=== PATIENT | male | born 1975 | race Caucasian/White ===

== ENCOUNTER 2017-08-07 02:17 | Inpatient (IN) ==
[2017-08-07] MEDS ORDERED: ASPIRIN 325 MG TABLET PO STA (02:42)
[2017-08-07 02:49] LABS: Basophils # 0.1 10*3/uL (0.0-0.2); Basophils % 0.7 % (0.0-0.8); Eosinophils # 0.2 10*3/uL (0.0-0.87); Hematocrit 44.9 VOL% (42.0-52.0); Immature Granulocytes % 0.2 %; Immature Granulocytes Absolute 0.02 #; Lymphocytes # 2.7 10*3/uL (1.4-4.0); Lymphocytes % 25.2 % (21.2-54.2); Mean Corpuscular HGB Conc 33.4 GM/DL (32-36); Mean Corpuscular Hemoglobin 29 PG (27-34); Mean Corpuscular Volume 87.4 FL (87-102); Mean Platelet Volume 11.2 FL (9.6-12.0); Monocytes # 0.7 10*3/uL (0.11-0.8); Monocytes % 6.2 % (1.7-12.7); Neutrophils # 6.9 10*3/uL (1.4-7.4); Neutrophils % 65.7 % (38.7-73.9); Platelet Count 233 T/CUMM (130-400); Red Blood Count 5.14 MC/CUMM (3.8-5.5); Red Cell Distribution Width 13.7 % (9.3-17.3); White Blood Count 10.5 T/CUMM (4-12)
[2017-08-07] MEDS ORDERED: ASPIRIN 325 MG TABLET ONE (02:52)
[2017-08-07 03:00] LABS: VBG Base Excess -1.3 MEQ/L (0-4); VBG HCO3 25.3 MEQ/L (24-28); VBG Oxygen Saturation 91.6 %; VBG PCO2 49.4 MMHG (41-51); VBG PH 7.328; VBG PO2 65.8 MMHG (17-40)
[2017-08-07 03:10] LABS: Albumin 3.7 G/DL (3.4-5.0); Bilirubin,Total 0.4 MG/DL (0.2-1.0); Calcium 8.7 MG/DL (8.5-10.1); Osmolality,Calculated 275.7 MOS/KG (273-304); Total Protein 6.8 G/DL (6.4-8.3)
[2017-08-07] MEDS ORDERED: FUROSEMIDE 40 MG/4 ML VIAL IV STA (03:36)
[2017-08-07] MEDS ORDERED: FUROSEMIDE 40 MG/4 ML VIAL ONE (03:47)
[2017-08-07] MEDS ORDERED: LORazepam 2 MG/1 ML VIAL IV STA (03:52)
[2017-08-07] MEDS ORDERED: LORazepam 2 MG/1 ML VIAL ONE (03:54)
[2017-08-07] MEDS ORDERED: MORPHINE 2 MG/1 ML SYRINGE IV PRN (05:14)
[2017-08-07] MEDS ORDERED: ONDANSETRON 4 MG/2 ML VIAL IV PRN (05:14)
[2017-08-07 06:14] LABS: Magnesium 1.9 MG/DL (1.8-2.4); Risk Ratio 3.95; Thyroid Stimulating Hormone 2.62 uIU/ml (0.358-3.74); VLDL CHOLESTEROL 34.6 MG/DL
[2017-08-07] MEDS ORDERED: NITROGLYCERIN SL 0.4 MG TABLET SL PRN (06:31)
[2017-08-07] MEDS ORDERED: INFLUENZA VIRUS VACCINE 0.5 ML SYRINGE IM ONE (06:55)
[2017-08-07] MEDS ORDERED: PNEUMOCOCCAL VACCINE (23 VALENT) 0.5 ML VIAL IM ONE (06:56)
[2017-08-07] MEDS: FUROSEMIDE 20 MG/2 ML VIAL IV SCH ×2 (09:23→17:52)
[2017-08-07] MEDS: ENOXAPARIN 40 MG/0.4 ML SYRINGE SUBCUT SCH (09:23)
[2017-08-07] MEDS: LISINOPRIL 2.5 MG TABLET PO SCH (09:23)
[2017-08-07] MEDS: POTASSIUM CHLORIDE 10 MEQ TABLET PO SCH ×2 (09:23→20:51)
[2017-08-07] MEDS ORDERED: DIAZEPAM 5 MG TABLET PO ONE (10:34)
[2017-08-07] MEDS ORDERED: MAGNESIUM SULF RIDER 2 GM in PREMIX 1 EACH IV PRN (10:34)
[2017-08-07] MEDS ORDERED: POTASSIUM CHLORIDE RIDER 10 MEQ in PREMIX 1 EACH IV PRN (10:34)
[2017-08-07 11:51] LABS: Hepatitis A Ab IgM Quant 0.14 Index; Hepatitis A Ab IgM Result Negative (Negative); Hepatitis B Core IgM Quant 0.11 Index; Hepatitis B Core IgM Result Negative (Negative); Hepatitis B Surface Ag Quant < 0.10 Index; Hepatitis B Surface Ag Result Negative (Negative); Hepatitis C Virus Ab Quant < 0.02 Index; Hepatitis C Virus Ab Result Negative (Negative)
[2017-08-07] MEDS ORDERED: DEXTROSE 50% 25 GM/50 ML VIAL IV PRN (11:59)
[2017-08-07] MEDS ORDERED: GLUCAGON 1 MG VIAL IM PRN (11:59)
[2017-08-07 12:03] LABS: HIV Antigen/Antibody Result Nonreactive (Nonreactive)
[2017-08-07] MEDS: INSULIN LISPRO 100 UNIT/ML SUBCUT SCH ×2 (16:15→20:52)
[2017-08-07] MEDS: BISOPROLOL 5 MG TABLET PO SCH (17:52)
[2017-08-07] MEDS: LORazepam 2 MG/1 ML VIAL IV PRN (20:51)
[2017-08-08] MEDS: ENOXAPARIN 40 MG/0.4 ML SYRINGE SUBCUT SCH (05:50)
[2017-08-08 05:53] LABS: Calcium 9.3 MG/DL (8.5-10.1); Osmolality,Calculated 279.5 MOS/KG (273-304); Potassium 4.3 MMOL/L (3.5-5.1)
[2017-08-08 05:56] LABS: Albumin 3.3 G/DL (3.4-5.0); Bilirubin,Total 0.9 MG/DL (0.2-1.0); Calcium 9.1 MG/DL (8.5-10.1); Osmolality,Calculated 280.5 MOS/KG (273-304); Potassium 4.3 MMOL/L (3.5-5.1); Total Protein 5.9 G/DL (6.4-8.3)
[2017-08-08 06:10] LABS: Basophils # 0.1 10*3/uL (0.0-0.2); Basophils % 0.8 % (0.0-0.8); Eosinophils # 0.2 10*3/uL (0.0-0.87); Eosinophils % 2.2 % (0.00-10.9); Hematocrit 44.3 VOL% (42.0-52.0); Hemoglobin 14.8 GM/DL (14.0-18.0); Immature Granulocytes % 0.3 %; Immature Granulocytes Absolute 0.03 #; Lymphocytes # 2.9 10*3/uL (1.4-4.0); Lymphocytes % 27.6 % (21.2-54.2); Mean Corpuscular HGB Conc 33.4 GM/DL (32-36); Mean Corpuscular Hemoglobin 29 PG (27-34); Mean Corpuscular Volume 85.7 FL (87-102); Mean Platelet Volume 12.1 FL (9.6-12.0); Monocytes # 0.6 10*3/uL (0.11-0.8); Neutrophils # 6.6 10*3/uL (1.4-7.4); Neutrophils % 63.1 % (38.7-73.9); Platelet Count 256 T/CUMM (130-400); Red Blood Count 5.17 MC/CUMM (3.8-5.5); Red Cell Distribution Width 13.7 % (9.3-17.3); White Blood Count 10.4 T/CUMM (4-12)
[2017-08-08] MEDS ORDERED: DIAZEPAM 5 MG TABLET ONE (07:41)
[2017-08-08] MEDS ORDERED: diphenhydrAMINE CAP 25 MG CAPSULE ONE (07:41)
[2017-08-08] MEDS: INSULIN LISPRO 100 UNIT/ML SUBCUT SCH ×4 (08:43→21:46)
[2017-08-08] MEDS ORDERED: diphenhydrAMINE CAP 25 MG CAPSULE PO ONE (09:00)
[2017-08-08] MEDS ORDERED: LIDOCAINE 1% 20 ML VIAL ONE (09:13)
[2017-08-08] MEDS ORDERED: HEPARIN/NACL 0.9% 2 UNITS/ML 2,000 ML IV ONE (09:13)
[2017-08-08] MEDS: BISOPROLOL 5 MG TABLET PO SCH (09:24)
[2017-08-08] MEDS: LISINOPRIL 2.5 MG TABLET PO SCH (09:24)
[2017-08-08] MEDS ORDERED: MIDAZOLAM 2 MG/2 ML VIAL ONE (09:55)
[2017-08-08] MEDS ORDERED: fentaNYL 100 MCG/2 ML VIAL ONE (09:55)
[2017-08-08] MEDS ORDERED: FUROSEMIDE 20 MG/2 ML VIAL IV SCH (10:24)
[2017-08-08] MEDS ORDERED: FUROSEMIDE 40 MG/4 ML VIAL IV ONE (10:34)
[2017-08-08] MEDS: SODIUM CHLORIDE 0.45% 1,000 ML IV SCH ×3 (10:48→14:54)
[2017-08-08] MEDS: FUROSEMIDE 20 MG/2 ML VIAL IV SCH (11:04)
[2017-08-08] MEDS: POTASSIUM CHLORIDE 10 MEQ TABLET PO SCH ×2 (12:19→21:42)
[2017-08-08] MEDS: LORazepam 2 MG/1 ML VIAL IV PRN (17:35)
[2017-08-08] MEDS ORDERED: ATORVASTATIN 20 MG TABLET PO SCH (21:00)
[2017-08-08] MEDS ORDERED: CARVEDILOL 3.125 MG TABLET PO SCH (21:00)
[2017-08-08] MEDS ORDERED: SACUBITRIL/VALSARTAN 49-51 MG TABLET PO SCH (21:00)
[2017-08-09 00:38] VITALS: BP 116/69
[2017-08-09] MEDS: LORazepam 2 MG/1 ML VIAL IV PRN (01:34)
[2017-08-09] MEDS ORDERED: ASPIRIN EC 81 MG TABLET PO SCH (09:00)
[2017-08-09] MEDS ORDERED: FUROSEMIDE 40 MG/4 ML VIAL IV SCH (09:00)
== END 2017-08-09 02:31 | disposition left against medical advice (07) | DRG 287 ==
LOC: N.ED 02:17 → N.EDINP 05:11 → SUATTDRO 05:11 → N.TELEN 05:59
PROVIDERS: ADMIT Internal Medicine; ATTEND Internal Medicine
PROC: CLCCHCL (ICD-10-PCS; 2017-08-08 10:15)

== ENCOUNTER 2019-12-16 02:47 | Observation (INO) ==
[2019-12-16 03:20] LABS: Basophils # 0.1 10*3/uL (0.0-0.2); Basophils % 0.5 % (0.0-0.8); Eosinophils # 0.1 10*3/uL (0.0-0.87); Eosinophils % 1.4 % (0.00-10.9); Hematocrit 38.2 VOL% (42.0-52.0); Hemoglobin 12.6 GM/DL (14.0-18.0); Immature Granulocytes % 0.2 %; Immature Granulocytes Absolute 0.02 #; Lymphocytes # 2.4 10*3/uL (1.4-4.0); Lymphocytes % 23.7 % (21.2-54.2); Mean Corpuscular Volume 87.6 FL (87-102); Mean Platelet Volume 10.9 FL (9.6-12.0); Monocytes % 7.8 % (1.7-12.7); Neutrophils % 66.4 % (38.7-73.9); Platelet Count 246 T/CUMM (130-400); Red Blood Count 4.36 MC/CUMM (3.8-5.5); Red Cell Distribution Width 13.6 % (9.3-17.3)
[2019-12-16 03:31] LABS: INR 1.1; PT Patient Result 11.9 SECS (9.8-11.9)
[2019-12-16 03:57] LABS: Albumin 3.1 G/DL (3.4-5.0); Calcium 8.7 MG/DL (8.5-10.1); Osmolality,Calculated 283.4 MOS/KG (273-304); Total Protein 6.2 G/DL (6.4-8.3)
[2019-12-16] MEDS ORDERED: FUROSEMIDE 100 MG/10 ML VIAL IV STA (04:39)
[2019-12-16] MEDS ORDERED: guaiFENesin/DM ER 600-30 MG TABLET PO PRN (05:22)
[2019-12-16] MEDS ORDERED: NICOTINE 21 MG/24 HR PATCH TRANSDERM PRN (05:22)
[2019-12-16] MEDS ORDERED: GLUCAGON 1 MG VIAL IM PRN (05:22)
[2019-12-16] MEDS ORDERED: ALUMINUM/MAGNES/SIMETH MAX STR 30 ML UDCUP PO PRN (05:22)
[2019-12-16] MEDS ORDERED: diphenhydrAMINE CAP 25 MG CAPSULE PO PRN (05:22)
[2019-12-16] MEDS ORDERED: DEXTROSE 50% 25 GM/50 ML VIAL IV PRN (05:22)
[2019-12-16] MEDS ORDERED: hydrALAZINE 20 MG/1 ML VIAL IV PRN (05:22)
[2019-12-16] MEDS ORDERED: ONDANSETRON 4 MG/2 ML VIAL IV PRN (05:22)
[2019-12-16] MEDS ORDERED: MORPHINE 4 MG/1 ML VIAL IV PRN (05:22)
[2019-12-16] MEDS ORDERED: ACETAMINOPHEN 325 MG TABLET PO PRN (05:22)
[2019-12-16 05:36] LABS: Apearance,Urine CLEAR (Clear); Bacteria,Urine Occasional /HPF (Few); Bilirubin,Urine Negative (Negative); Blood, Urine Negative (Negative); Calcium Oxalate Crystals,Urine Occasional /HPF (Few); Glucose,Urine (UA) Negative (Negative); Ketones,Urine Negative (Negative); Mucus,Urine Occasional /LPF (Occasional); Nitrite,Urine Negative (Negative); Protein,Urine 30 MG/DL; RBC,Urine 14 /HPF (0-4); Sperm,Urine Occasional /HPF (Negative); Squamous Epithelial Cell,Urine Occasional /HPF (0-10); Urine Color Yellow (Yellow); Urine Specific Gravity 1.047 (1.001-1.035); Urine Urobilinogen < 2.0 EU/DL (0.2-1.0); WBC,Urine 3 /HPF (0-6)
[2019-12-16 07:19] LABS: Risk Ratio 3.49; Thyroid Stimulating Hormone 1.64 uIU/ml (0.358-3.74)
[2019-12-16 07:50] LABS: Barbiturates Screen,Urine Negative (Negative); Benzodiazepines Screen,Urine Negative (Negative); Cannabinoid Screen,Urine Positive (Negative); Opiate Screen,Urine Negative (Negative); Phencyclidine Screen,Urine Negative (Negative)
[2019-12-16] MEDS: INSULIN REGULAR 100 UNIT/ML SUBCUT SCH ×4 (08:42→21:06)
[2019-12-16] MEDS: carvediloL 12.5 MG TABLET PO SCH ×2 (08:49→21:05)
[2019-12-16] MEDS: FUROSEMIDE 20 MG/2 ML VIAL IV SCH (08:49)
[2019-12-16] MEDS: ENOXAPARIN 40 MG/0.4 ML SYRINGE SUBCUT SCH (08:50)
[2019-12-16] MEDS: ASPIRIN CHEW 81 MG TABLET PO SCH (21:04)
[2019-12-17 06:52] LABS: Basophils # 0.1 10*3/uL (0.0-0.2); Basophils % 0.7 % (0.0-0.8); Eosinophils # 0.2 10*3/uL (0.0-0.87); Eosinophils % 1.7 % (0.00-10.9); Hematocrit 43.8 VOL% (42.0-52.0); Hemoglobin 14.5 GM/DL (14.0-18.0); Immature Granulocytes % 0.3 %; Immature Granulocytes Absolute 0.03 #; Lymphocytes # 2.1 10*3/uL (1.4-4.0); Lymphocytes % 21.5 % (21.2-54.2); Mean Corpuscular HGB Conc 33.1 GM/DL (32-36); Mean Corpuscular Volume 87.3 FL (87-102); Monocytes % 4.5 % (1.7-12.7); Neutrophils % 71.3 % (38.7-73.9); Platelet Count 264 T/CUMM (130-400); Red Blood Count 5.02 MC/CUMM (3.8-5.5); Red Cell Distribution Width 13.9 % (9.3-17.3); White Blood Count 9.6 T/CUMM (4-12)
[2019-12-17 07:19] LABS: Calcium 8.8 MG/DL (8.5-10.1); Osmolality,Calculated 278.7 MOS/KG (273-304)
[2019-12-17] MEDS: INSULIN REGULAR 100 UNIT/ML SUBCUT SCH (07:31)
[2019-12-17 07:40] VITALS: BP 113/90
[2019-12-17] MEDS ORDERED: lisinopriL 2.5 MG TABLET PO SCH (09:26)
[2019-12-17] MEDS: carvediloL 12.5 MG TABLET PO SCH (09:43)
[2019-12-17] MEDS: FUROSEMIDE 20 MG/2 ML VIAL IV SCH (09:43)
[2019-12-17] MEDS: ASPIRIN CHEW 81 MG TABLET PO SCH (09:43)
[2019-12-17] MEDS: ENOXAPARIN 40 MG/0.4 ML SYRINGE SUBCUT SCH (09:43)
== END 2019-12-17 11:15 | disposition home or self-care (01) ==
LOC: EDBD → EDUNIT# → N.EDINP 02:47 → N.ED 02:47 → N.TELES 05:53
PROVIDERS: ADMIT Internal Medicine; ATTEND Internal Medicine

== ENCOUNTER 2020-04-24 11:06 | Observation (INO) ==
[2020-04-24] MEDS ORDERED: FUROSEMIDE 100 MG/10 ML VIAL IV STA ×2 (12:33→13:28)
[2020-04-24 12:57] LABS: Basophils # 0.1 10*3/uL (0.0-0.2); Eosinophils # 0.2 10*3/uL (0.0-0.87); Eosinophils % 1.7 % (0.00-10.9); Hematocrit 41.5 VOL% (42.0-52.0); Hemoglobin 13.8 GM/DL (14.0-18.0); Immature Granulocytes % 0.2 %; Immature Granulocytes Absolute 0.02 #; Lymphocytes # 2.7 10*3/uL (1.4-4.0); Lymphocytes % 30.9 % (21.2-54.2); Mean Corpuscular HGB Conc 33.3 GM/DL (32-36); Mean Corpuscular Volume 87.9 FL (87-102); Mean Platelet Volume 10.9 FL (9.6-12.0); Monocytes % 9.4 % (1.7-12.7); Neutrophils % 56.8 % (38.7-73.9); Platelet Count 193 T/CUMM (130-400); Red Blood Count 4.72 MC/CUMM (3.8-5.5); Red Cell Distribution Width 16.3 % (9.3-17.3); White Blood Count 8.7 T/CUMM (4-12)
[2020-04-24 13:20] LABS: Albumin 3.9 G/DL (3.4-5.0); Bilirubin,Total 1.6 MG/DL (0.2-1.0); Calcium 9.6 MG/DL (8.5-10.1); Osmolality,Calculated 271.1 MOS/KG (273-304); Total Protein 7.5 G/DL (6.4-8.3)
[2020-04-24 14:37] LABS: Apearance,Urine CLEAR (Clear); Bilirubin,Urine Negative (Negative); Blood, Urine Negative (Negative); Glucose,Urine (UA) Negative (Negative); Ketones,Urine Negative (Negative); Mucus,Urine Occasional /LPF (Occasional); Nitrite,Urine Negative (Negative); Protein,Urine 30 MG/DL; RBC,Urine 1 /HPF (0-4); Urine Color Yellow (Yellow); Urine Specific Gravity 1.019 (1.001-1.035); WBC,Urine <1 /HPF (0-6)
[2020-04-24 14:42] LABS: Barbiturates Screen,Urine Negative (Negative); Benzodiazepines Screen,Urine Negative (Negative); Cannabinoid Screen,Urine Positive (Negative); Opiate Screen,Urine Negative (Negative); Phencyclidine Screen,Urine Negative (Negative)
[2020-04-24] MEDS ORDERED: ACETAMINOPHEN 325 MG TABLET PO PRN (15:55)
[2020-04-24] MEDS ORDERED: ONDANSETRON 4 MG/2 ML VIAL IV PRN (15:55)
[2020-04-24] MEDS ORDERED: DOCUSATE SODIUM 100 MG CAPSULE PO PRN (15:55)
[2020-04-24] MEDS ORDERED: hydrALAZINE 20 MG/1 ML VIAL IV PRN (15:55)
[2020-04-24] MEDS ORDERED: GLUCAGON 1 MG VIAL IM PRN (15:55)
[2020-04-24] MEDS ORDERED: guaiFENesin/DM ER 600-30 MG TABLET PO PRN (15:55)
[2020-04-24] MEDS ORDERED: DEXTROSE 50% 25 GM/50 ML VIAL IV PRN (15:55)
[2020-04-24 17:42] LABS: Risk Ratio 6.48; Thyroid Stimulating Hormone 2.01 uIU/ml (0.358-3.74); VLDL CHOLESTEROL 21.4 MG/DL
[2020-04-24 18:07] LABS: Apearance,Urine CLEAR (Clear); Bilirubin,Urine Negative (Negative); Blood, Urine Negative (Negative); Glucose,Urine (UA) Negative (Negative); Ketones,Urine Negative (Negative); Mucus,Urine Occasional /LPF (Occasional); Nitrite,Urine Negative (Negative); Protein,Urine Negative; RBC,Urine <1 /HPF (0-4); Urine Color Straw (Yellow); Urine Specific Gravity 1.005 (1.001-1.035); Urine Urobilinogen < 2.0 EU/DL (0.2-1.0)
[2020-04-24] MEDS: FUROSEMIDE 40 MG/4 ML VIAL IV SCH (18:33)
[2020-04-24] MEDS: carvediloL 12.5 MG TABLET PO SCH (18:38)
[2020-04-24] MEDS: ENOXAPARIN 40 MG/0.4 ML SYRINGE SUBCUT SCH (18:44)
[2020-04-25 05:57] LABS: Basophils # 0.1 10*3/uL (0.0-0.2); Basophils % 0.8 % (0.0-0.8); Eosinophils # 0.2 10*3/uL (0.0-0.87); Hematocrit 40.8 VOL% (42.0-52.0); Hemoglobin 13.1 GM/DL (14.0-18.0); Immature Granulocytes % 0.3 %; Immature Granulocytes Absolute 0.02 #; Lymphocytes # 2.4 10*3/uL (1.4-4.0); Lymphocytes % 31.4 % (21.2-54.2); Mean Corpuscular HGB Conc 32.1 GM/DL (32-36); Mean Corpuscular Volume 89.5 FL (87-102); Mean Platelet Volume 11.3 FL (9.6-12.0); Monocytes % 9.3 % (1.7-12.7); Neutrophils % 56.2 % (38.7-73.9); Platelet Count 194 T/CUMM (130-400); Red Blood Count 4.56 MC/CUMM (3.8-5.5); Red Cell Distribution Width 16.4 % (9.3-17.3); White Blood Count 7.6 T/CUMM (4-12)
[2020-04-25] MEDS: ASPIRIN CHEW 81 MG TABLET PO SCH (09:28)
[2020-04-25] MEDS: FUROSEMIDE 40 MG/4 ML VIAL IV SCH ×2 (09:28→16:23)
[2020-04-25] MEDS: lisinopriL 5 MG TABLET PO SCH (09:28)
[2020-04-25] MEDS: carvediloL 12.5 MG TABLET PO SCH ×2 (09:28→23:12)
[2020-04-25] MEDS: PANTOPRAZOLE 40 MG TABLET PO SCH (09:28)
[2020-04-25] MEDS ORDERED: NICOTINE 21 MG/24 HR PATCH TRANSDERM PRN (13:16)
[2020-04-25] MEDS: ENOXAPARIN 40 MG/0.4 ML SYRINGE SUBCUT SCH (16:26)
[2020-04-26 06:21] LABS: Basophils # 0.1 10*3/uL (0.0-0.2); Basophils % 0.9 % (0.0-0.8); Eosinophils # 0.2 10*3/uL (0.0-0.87); Eosinophils % 2.9 % (0.00-10.9); Hematocrit 41.5 VOL% (42.0-52.0); Hemoglobin 13.6 GM/DL (14.0-18.0); Immature Granulocytes % 0.3 %; Immature Granulocytes Absolute 0.02 #; Lymphocytes % 30.8 % (21.2-54.2); Mean Corpuscular HGB Conc 32.8 GM/DL (32-36); Mean Corpuscular Volume 87.6 FL (87-102); Mean Platelet Volume 10.9 FL (9.6-12.0); Monocytes % 10.1 % (1.7-12.7); Platelet Count 178 T/CUMM (130-400); Red Blood Count 4.74 MC/CUMM (3.8-5.5); Red Cell Distribution Width 16.4 % (9.3-17.3); White Blood Count 6.6 T/CUMM (4-12)
[2020-04-26 06:46] LABS: Calcium 9.1 MG/DL (8.5-10.1); Osmolality,Calculated 273.8 MOS/KG (273-304)
[2020-04-26] MEDS: lisinopriL 5 MG TABLET PO SCH (08:23)
[2020-04-26] MEDS: POTASSIUM CHLORIDE 20 MEQ TABLET PO SCH ×2 (08:23→20:45)
[2020-04-26] MEDS: PANTOPRAZOLE 40 MG TABLET PO SCH (08:24)
[2020-04-26] MEDS: ASPIRIN CHEW 81 MG TABLET PO SCH (08:24)
[2020-04-26] MEDS: FUROSEMIDE 40 MG/4 ML VIAL IV SCH ×2 (08:24→16:04)
[2020-04-26] MEDS: carvediloL 12.5 MG TABLET PO SCH (08:24)
[2020-04-26] MEDS ORDERED: lisinopriL 2.5 MG TABLET PO SCH (15:00)
[2020-04-26] MEDS: ENOXAPARIN 40 MG/0.4 ML SYRINGE SUBCUT SCH (16:03)
[2020-04-26] MEDS: carvediloL 6.25 MG TABLET PO SCH (20:45)
[2020-04-27 06:50] LABS: Basophils # 0.1 10*3/uL (0.0-0.2); Basophils % 0.9 % (0.0-0.8); Eosinophils # 0.2 10*3/uL (0.0-0.87); Eosinophils % 3.1 % (0.00-10.9); Hematocrit 42.3 VOL% (42.0-52.0); Hemoglobin 13.9 GM/DL (14.0-18.0); Immature Granulocytes % 0.3 %; Immature Granulocytes Absolute 0.02 #; Lymphocytes # 2.4 10*3/uL (1.4-4.0); Mean Corpuscular HGB Conc 32.9 GM/DL (32-36); Mean Corpuscular Volume 86.3 FL (87-102); Mean Platelet Volume 11.2 FL (9.6-12.0); Neutrophils % 54.7 % (38.7-73.9); Platelet Count 190 T/CUMM (130-400); Red Cell Distribution Width 16.5 % (9.3-17.3); White Blood Count 7.7 T/CUMM (4-12)
[2020-04-27 07:09] LABS: Osmolality,Calculated 273.8 MOS/KG (273-304)
[2020-04-27] MEDS: POTASSIUM CHLORIDE 20 MEQ TABLET PO SCH (08:50)
[2020-04-27] MEDS: carvediloL 6.25 MG TABLET PO SCH (08:51)
[2020-04-27] MEDS: PANTOPRAZOLE 40 MG TABLET PO SCH (08:51)
[2020-04-27] MEDS: ASPIRIN CHEW 81 MG TABLET PO SCH (08:51)
[2020-04-27] MEDS: FUROSEMIDE 40 MG/4 ML VIAL IV SCH (08:51)
[2020-04-27 09:18] VITALS: BP 98/72
== END 2020-04-27 10:26 | disposition home or self-care (01) ==
LOC: N.ED 11:06 → INTOOBSV 15:55 → N.EDINP 15:55 → N.TELEN 18:16
PROVIDERS: ADMIT Internal Medicine; ATTEND Internal Medicine

== ENCOUNTER 2020-07-20 17:31 | Inpatient (IN) ==
[2020-07-20 18:22] LABS: Basophils # 0.1 10*3/uL (0.0-0.2); Basophils % 0.5 % (0.0-0.8); Eosinophils # 0.1 10*3/uL (0.0-0.87); Eosinophils % 0.6 % (0.00-10.9); Hematocrit 44.7 VOL% (42.0-52.0); Immature Granulocytes % 0.5 %; Immature Granulocytes Absolute 0.06 #; Lymphocytes # 1.7 10*3/uL (1.4-4.0); Lymphocytes % 13.4 % (21.2-54.2); Mean Corpuscular HGB Conc 33.6 GM/DL (32-36); Mean Platelet Volume 12.2 FL (9.6-12.0); Monocytes % 7.2 % (1.7-12.7); Neutrophils % 77.8 % (38.7-73.9); Platelet Count 182 T/CUMM (130-400); Red Blood Count 5.14 MC/CUMM (3.8-5.5); Red Cell Distribution Width 15.1 % (9.3-17.3); White Blood Count 12.8 T/CUMM (4-12)
[2020-07-20 18:48] LABS: Ferritin 238.4 ng/ml (26-388)
[2020-07-20] MEDS ORDERED: ALBUTEROL/IPRATROPIUM 3 ML NEB RESP TX STA (18:53)
[2020-07-20] MEDS ORDERED: methylPREDNISolone SOD SUC 125 MG/2 ML VIAL IV STA (18:53)
[2020-07-20 18:57] LABS: Albumin 3.6 G/DL (3.4-5.0); Bilirubin,Total 3.7 MG/DL (0.2-1.0); Osmolality,Calculated 263.8 MOS/KG (273-304)
[2020-07-20 19:03] LABS: Bacteria,Urine Occasional /HPF (Few); Bilirubin,Urine Negative (Negative); Blood, Urine Negative (Negative); Glucose,Urine (UA) Negative (Negative); Hyaline Casts,Urine 30 /LPF (0-3); Ketones,Urine Negative (Negative); Mucus,Urine Occasional /LPF (Occasional); Nitrite,Urine Negative (Negative); Protein,Urine 100 MG/DL; RBC,Urine 1 /HPF (0-4); Urine Appearance CLEAR (Clear); Urine Color Amber (Yellow); Urine Specific Gravity 1.018 (1.001-1.035); WBC,Urine 1 /HPF (0-6)
[2020-07-20] MEDS ORDERED: SODIUM CHLORIDE 0.9% 1,000 ML IV STA (19:07)
[2020-07-20] MEDS ORDERED: FUROSEMIDE 40 MG/4 ML VIAL IV STA (19:11)
[2020-07-20 19:13] LABS: Barbiturates Screen,Urine Negative (Negative); Benzodiazepines Screen,Urine Negative (Negative); Cannabinoid Screen,Urine Positive (Negative); Opiate Screen,Urine Negative (Negative); Phencyclidine Screen,Urine Negative (Negative)
[2020-07-20] MEDS ORDERED: PIPERACILLIN/TAZOBACTAM 3,375 MG in SODIUM CHLORIDE 0.9% 100 ML IV STA (19:14)
[2020-07-20] MEDS ORDERED: SODIUM CHLORIDE 0.9% 500 ML IV STA (19:26)
[2020-07-20] MEDS ORDERED: GLUCAGON 1 MG VIAL IM PRN (20:47)
[2020-07-20] MEDS ORDERED: hydrALAZINE 20 MG/1 ML VIAL IV PRN (20:47)
[2020-07-20] MEDS ORDERED: DEXTROSE 50% 25 GM/50 ML VIAL IV PRN (20:47)
[2020-07-20] MEDS ORDERED: MORPHINE 4 MG/1 ML VIAL IV PRN (20:47)
[2020-07-20] MEDS ORDERED: NICOTINE 21 MG/24 HR PATCH TRANSDERM PRN (20:47)
[2020-07-20] MEDS ORDERED: ONDANSETRON 4 MG/2 ML VIAL IV PRN (20:47)
[2020-07-20] MEDS ORDERED: ALBUTEROL/IPRATROPIUM 3 ML NEB RESP TX PRN (20:55)
[2020-07-20] MEDS: ENOXAPARIN 40 MG/0.4 ML SYRINGE SUBCUT SCH (21:32)
[2020-07-20] MEDS ORDERED: LORazepam 2 MG/1 ML VIAL IV PRN (23:04)
[2020-07-21] MEDS: lisinopriL 2.5 MG TABLET PO SCH ×2 (00:20→22:32)
[2020-07-21] MEDS: traZODone 50 MG TABLET PO PRN ×2 (00:20→22:29)
[2020-07-21] MEDS: carvediloL 12.5 MG TABLET PO SCH ×3 (00:20→16:12)
[2020-07-21] MEDS: INSULIN REGULAR 100 UNIT/ML SUBCUT SCH ×5 (01:34→22:32)
[2020-07-21 01:35] LABS: Hepatitis B Core IgM Quant 0.07 Index; Hepatitis B Surface Ag Quant < 0.10 Index; Hepatitis B Surface Ag Result Negative (Negative); Hepatitis C Virus Ab Quant < 0.02 Index; Hepatitis C Virus Ab Result Negative (Negative)
[2020-07-21] MEDS: PIPERACILLIN/TAZOBACTAM 3,375 MG in SODIUM CHLORIDE 0.9% 100 ML IV SCH ×3 (04:55→22:30)
[2020-07-21 05:53] LABS: Basophils % 0.1 % (0.0-0.8); Hematocrit 38.4 VOL% (42.0-52.0); Immature Granulocytes % 0.5 %; Immature Granulocytes Absolute 0.04 #; Lymphocytes # 0.8 10*3/uL (1.4-4.0); Lymphocytes % 9.9 % (21.2-54.2); Mean Corpuscular HGB Conc 33.9 GM/DL (32-36); Mean Corpuscular Volume 85.9 FL (87-102); Mean Platelet Volume 12.5 FL (9.6-12.0); Monocytes % 4.2 % (1.7-12.7); Neutrophils % 85.3 % (38.7-73.9); Platelet Count 131 T/CUMM (130-400); Red Blood Count 4.47 MC/CUMM (3.8-5.5); Red Cell Distribution Width 14.7 % (9.3-17.3); White Blood Count 8.4 T/CUMM (4-12)
[2020-07-21 06:12] LABS: Albumin 2.9 G/DL (3.4-5.0); Calcium 8.5 MG/DL (8.5-10.1); Osmolality,Calculated 267.7 MOS/KG (273-304); Risk Ratio 5.95; Total Protein 6.6 G/DL (6.4-8.3); VLDL CHOLESTEROL 10.6 MG/DL
[2020-07-21] MEDS: methylPREDNISolone SOD SUC 40 MG/1 ML VIAL IV SCH ×2 (08:41→22:31)
[2020-07-21] MEDS: ASPIRIN CHEW 81 MG TABLET PO SCH (08:42)
[2020-07-21] MEDS: FUROSEMIDE 40 MG/4 ML VIAL IV SCH ×2 (08:42→16:12)
[2020-07-21] MEDS: PANTOPRAZOLE 40 MG TABLET PO SCH (08:42)
[2020-07-21] MEDS: ENOXAPARIN 40 MG/0.4 ML SYRINGE SUBCUT SCH (22:22)
[2020-07-22] MEDS: PIPERACILLIN/TAZOBACTAM 3,375 MG in SODIUM CHLORIDE 0.9% 100 ML IV SCH (06:09)
[2020-07-22] MEDS: methylPREDNISolone SOD SUC 40 MG/1 ML VIAL IV SCH ×2 (08:19→21:09)
[2020-07-22] MEDS: INSULIN REGULAR 100 UNIT/ML SUBCUT SCH ×4 (08:20→21:10)
[2020-07-22] MEDS: ASPIRIN CHEW 81 MG TABLET PO SCH (08:21)
[2020-07-22] MEDS: PANTOPRAZOLE 40 MG TABLET PO SCH (08:21)
[2020-07-22] MEDS: FUROSEMIDE 40 MG/4 ML VIAL IV SCH ×2 (08:21→16:21)
[2020-07-22] MEDS: carvediloL 12.5 MG TABLET PO SCH ×2 (08:21→16:21)
[2020-07-22] MEDS: CEFUROXIME 500 MG TABLET PO SCH (21:09)
[2020-07-22] MEDS: ENOXAPARIN 40 MG/0.4 ML SYRINGE SUBCUT SCH (21:09)
[2020-07-22] MEDS: lisinopriL 2.5 MG TABLET PO SCH (21:10)
[2020-07-23 06:10] LABS: Basophils % 0.1 % (0.0-0.8); Eosinophils % 0.1 % (0.00-10.9); Hematocrit 41.8 VOL% (42.0-52.0); Hemoglobin 13.6 GM/DL (14.0-18.0); Immature Granulocytes % 1.2 %; Immature Granulocytes Absolute 0.17 #; Lymphocytes # 0.8 10*3/uL (1.4-4.0); Lymphocytes % 5.6 % (21.2-54.2); Mean Corpuscular HGB Conc 32.5 GM/DL (32-36); Mean Corpuscular Volume 87.8 FL (87-102); Monocytes % 5.3 % (1.7-12.7); Neutrophils % 87.7 % (38.7-73.9); Platelet Count 228 T/CUMM (130-400); Red Blood Count 4.76 MC/CUMM (3.8-5.5); Red Cell Distribution Width 15.2 % (9.3-17.3); White Blood Count 14.8 T/CUMM (4-12)
[2020-07-23 06:26] LABS: Calcium 8.9 MG/DL (8.5-10.1); Osmolality,Calculated 273.2 MOS/KG (273-304)
[2020-07-23] MEDS: INSULIN REGULAR 100 UNIT/ML SUBCUT SCH (08:18)
[2020-07-23] MEDS: carvediloL 12.5 MG TABLET PO SCH (08:20)
[2020-07-23] MEDS: CEFUROXIME 500 MG TABLET PO SCH (08:20)
[2020-07-23] MEDS: PANTOPRAZOLE 40 MG TABLET PO SCH (08:20)
[2020-07-23] MEDS: ASPIRIN CHEW 81 MG TABLET PO SCH (08:20)
[2020-07-23] MEDS: FUROSEMIDE 40 MG/4 ML VIAL IV SCH (08:20)
[2020-07-23 08:59] VITALS: BP 118/85
[2020-07-23] MEDS ORDERED: AZITHROMYCIN 250 MG TABLET PO SCH (09:00)
== END 2020-07-23 10:51 | disposition home or self-care (01) | DRG 292 ==
LOC: N.ED 17:31 → N.EDINP 20:46 → N.TELES 22:55
PROVIDERS: ADMIT Hospitalist; ATTEND Hospitalist

== ENCOUNTER 2020-09-03 09:11 | Observation (INO) ==
[2020-09-03] MEDS ORDERED: FUROSEMIDE 40 MG/4 ML VIAL IV STA (09:51)
[2020-09-03 10:01] LABS: Basophils # 0.1 10*3/uL (0.0-0.2); Basophils % 0.9 % (0.0-0.8); Eosinophils # 0.2 10*3/uL (0.0-0.87); Eosinophils % 1.8 % (0.00-10.9); Hematocrit 42.4 VOL% (42.0-52.0); Hemoglobin 13.9 GM/DL (14.0-18.0); Immature Granulocytes % 0.4 %; Immature Granulocytes Absolute 0.03 #; Lymphocytes # 1.7 10*3/uL (1.4-4.0); Lymphocytes % 20.4 % (21.2-54.2); Mean Corpuscular HGB Conc 32.8 GM/DL (32-36); Mean Corpuscular Volume 89.1 FL (87-102); Mean Platelet Volume 10.7 FL (9.6-12.0); Monocytes % 6.6 % (1.7-12.7); Neutrophils % 69.9 % (38.7-73.9); Platelet Count 216 T/CUMM (130-400); Red Blood Count 4.76 MC/CUMM (3.8-5.5); Red Cell Distribution Width 15.8 % (9.3-17.3); White Blood Count 8.5 T/CUMM (4-12)
[2020-09-03 10:20] LABS: Albumin 3.6 G/DL (3.4-5.0); Bilirubin,Total 1.6 MG/DL (0.2-1.0); Potassium 4.2 MMOL/L (3.5-5.1); Total Protein 6.7 G/DL (6.4-8.3)
[2020-09-03] MEDS ORDERED: ACETAMINOPHEN 325 MG TABLET PO PRN (11:15)
[2020-09-03] MEDS ORDERED: DEXTROSE 50% 25 GM/50 ML VIAL IV PRN (11:15)
[2020-09-03] MEDS ORDERED: ONDANSETRON 4 MG/2 ML VIAL IV PRN (11:15)
[2020-09-03] MEDS ORDERED: GLUCAGON 1 MG VIAL IM PRN (11:15)
[2020-09-03 13:05] LABS: Barbiturates Screen,Urine Negative (Negative); Benzodiazepines Screen,Urine Negative (Negative); Cannabinoid Screen,Urine Negative (Negative); Opiate Screen,Urine Negative (Negative); Phencyclidine Screen,Urine Negative (Negative)
[2020-09-03] MEDS: FUROSEMIDE 40 MG/4 ML VIAL IV SCH ×2 (16:30→16:45)
[2020-09-03] MEDS: carvediloL 6.25 MG TABLET PO SCH (21:09)
[2020-09-04 06:33] LABS: Basophils # 0.1 10*3/uL (0.0-0.2); Basophils % 1.2 % (0.0-0.8); Eosinophils # 0.2 10*3/uL (0.0-0.87); Eosinophils % 2.6 % (0.00-10.9); Immature Granulocytes % 0.3 %; Immature Granulocytes Absolute 0.02 #; Lymphocytes # 1.7 10*3/uL (1.4-4.0); Lymphocytes % 25.2 % (21.2-54.2); Mean Corpuscular HGB Conc 33.3 GM/DL (32-36); Mean Corpuscular Volume 87.7 FL (87-102); Mean Platelet Volume 11.3 FL (9.6-12.0); Monocytes % 7.7 % (1.7-12.7); Platelet Count 197 T/CUMM (130-400); Red Blood Count 4.79 MC/CUMM (3.8-5.5); Red Cell Distribution Width 15.6 % (9.3-17.3); White Blood Count 6.9 T/CUMM (4-12)
[2020-09-04 07:00] LABS: Calcium 8.5 MG/DL (8.5-10.1); Osmolality,Calculated 273.8 MOS/KG (273-304); Potassium 3.7 MMOL/L (3.5-5.1); Thyroid Stimulating Hormone 1.45 uIU/ml (0.358-3.74)
[2020-09-04] MEDS: FUROSEMIDE 40 MG/4 ML VIAL IV SCH ×2 (10:14→15:44)
[2020-09-04] MEDS: PANTOPRAZOLE 40 MG TABLET PO SCH (10:14)
[2020-09-04] MEDS: carvediloL 6.25 MG TABLET PO SCH ×2 (10:14→20:38)
[2020-09-05 05:11] LABS: Basophils # 0.1 10*3/uL (0.0-0.2); Basophils % 0.9 % (0.0-0.8); Eosinophils # 0.2 10*3/uL (0.0-0.87); Eosinophils % 2.8 % (0.00-10.9); Hematocrit 43.2 VOL% (42.0-52.0); Hemoglobin 14.4 GM/DL (14.0-18.0); Immature Granulocytes % 0.2 %; Immature Granulocytes Absolute 0.02 #; Lymphocytes # 1.6 10*3/uL (1.4-4.0); Lymphocytes % 19.5 % (21.2-54.2); Mean Corpuscular HGB Conc 33.3 GM/DL (32-36); Mean Corpuscular Volume 86.7 FL (87-102); Mean Platelet Volume 10.8 FL (9.6-12.0); Monocytes % 6.6 % (1.7-12.7); Platelet Count 228 T/CUMM (130-400); Red Blood Count 4.98 MC/CUMM (3.8-5.5); Red Cell Distribution Width 15.5 % (9.3-17.3); White Blood Count 8.2 T/CUMM (4-12)
[2020-09-05 05:29] LABS: Calcium 8.9 MG/DL (8.5-10.1); Osmolality,Calculated 274.1 MOS/KG (273-304); Potassium 3.8 MMOL/L (3.5-5.1)
[2020-09-05 08:18] VITALS: BP 95/68
[2020-09-05] MEDS: FUROSEMIDE 40 MG/4 ML VIAL IV SCH (08:58)
[2020-09-05] MEDS: carvediloL 6.25 MG TABLET PO SCH (08:58)
[2020-09-05] MEDS: PANTOPRAZOLE 40 MG TABLET PO SCH (08:58)
== END 2020-09-05 12:40 | disposition home or self-care (01) ==
LOC: EDUNIT# → EDBD → N.EDINP 09:11 → N.ED 09:11 → N.TELEN 12:45
PROVIDERS: ADMIT Internal Medicine Geriatric Medicine; ATTEND Internal Medicine Geriatric Medicine

== ENCOUNTER 2021-01-15 05:36 | Observation (INO) ==
[2021-01-15] MEDS ORDERED: FUROSEMIDE 100 MG/10 ML VIAL ONE (06:24)
[2021-01-15 06:25] LABS: Basophils # 0.1 10*3/uL (0.0-0.2); Basophils % 1.1 % (0.0-0.8); Eosinophils # 0.2 10*3/uL (0.0-0.87); Eosinophils % 2.6 % (0.00-10.9); Hematocrit 44.1 VOL% (42.0-52.0); Hemoglobin 14.8 GM/DL (14.0-18.0); Immature Granulocytes % 0.4 %; Immature Granulocytes Absolute 0.03 #; Lymphocytes # 1.9 10*3/uL (1.4-4.0); Lymphocytes % 23.9 % (21.2-54.2); Mean Corpuscular HGB Conc 33.6 GM/DL (32-36); Mean Corpuscular Volume 89.3 FL (87-102); Mean Platelet Volume 11.4 FL (9.6-12.0); Monocytes % 8.1 % (1.7-12.7); Neutrophils % 63.9 % (38.7-73.9); Platelet Count 219 T/CUMM (130-400); Red Blood Count 4.94 MC/CUMM (3.8-5.5); Red Cell Distribution Width 16.2 % (9.3-17.3)
[2021-01-15] MEDS ORDERED: FUROSEMIDE 40 MG/4 ML VIAL IV STA (06:28)
[2021-01-15 06:31] LABS: INR 1.2; PT Patient Result 13.6 SECS (10.5-12.0); Partial Thromboplastin Time 26.4 SECS (23.9-33.8)
[2021-01-15 06:34] LABS: Albumin 3.9 G/DL (3.4-5.0); Bilirubin,Total 1.9 MG/DL (0.2-1.0); Calcium 8.9 MG/DL (8.5-10.1); Osmolality,Calculated 267.4 MOS/KG (273-304); Potassium 3.4 MMOL/L (3.5-5.1); Total Protein 7.6 G/DL (6.4-8.2)
[2021-01-15 06:56] LABS: Atypical Lymphocytes Few; Eosinophils 4 % (0-10); Hypochromasia 1+; Lymphocytes 25 % (20-55); Microcytosis 1+; Nucleated Red Blood Cells 1 (0-5); Ovalocytes Slight; Platelet Estimate Normal; Segmented Neutrophils 62 % (50-85); Total Cells Counted 100
[2021-01-15 07:31] LABS: Bilirubin,Urine Negative (Negative); Blood, Urine Negative (Negative); Glucose,Urine (UA) Negative (Negative); Hyaline Casts,Urine 21 /LPF (0-3); Ketones,Urine Negative (Negative); Mucus,Urine Occasional /LPF (Occasional); Nitrite,Urine Negative (Negative); Protein,Urine 100 MG/DL; RBC,Urine <1 /HPF (0-4); Urine Appearance CLEAR (Clear); Urine Color Yellow (Yellow)
[2021-01-15 09:32] LABS: Barbiturates Screen,Urine Negative (Negative); Benzodiazepines Screen,Urine Negative (Negative); Cannabinoid Screen,Urine Positive (Negative); Opiate Screen,Urine Negative (Negative); Phencyclidine Screen,Urine Negative (Negative)
[2021-01-15] MEDS ORDERED: DEXTROSE 50% 25 GM/50 ML VIAL IV PRN ×2 (10:21→13:41)
[2021-01-15] MEDS ORDERED: GLUCAGON 1 MG VIAL IM PRN ×2 (10:21→13:41)
[2021-01-15] MEDS ORDERED: POTASSIUM CHLORIDE 20 MEQ TABLET PO ONE (10:24)
[2021-01-15] MEDS: ENOXAPARIN 40 MG/0.4 ML SYRINGE SUBCUT SCH (11:55)
[2021-01-15] MEDS: INSULIN LISPRO 100 UNIT/ML SUBCUT SCH ×2 (16:42→21:19)
[2021-01-15] MEDS: FUROSEMIDE 40 MG/4 ML VIAL IV SCH (17:49)
[2021-01-15] MEDS: ONDANSETRON 4 MG/2 ML VIAL IV PRN (17:50)
[2021-01-15] MEDS: carvediloL 6.25 MG TABLET PO SCH (21:19)
[2021-01-16 05:10] LABS: Basophils # 0.1 10*3/uL (0.0-0.2); Basophils % 1.3 % (0.0-0.8); Eosinophils # 0.2 10*3/uL (0.0-0.87); Eosinophils % 2.2 % (0.00-10.9); Hematocrit 44.8 VOL% (42.0-52.0); Immature Granulocytes % 0.3 %; Immature Granulocytes Absolute 0.02 #; Lymphocytes # 1.8 10*3/uL (1.4-4.0); Lymphocytes % 22.3 % (21.2-54.2); Mean Corpuscular HGB Conc 33.5 GM/DL (32-36); Mean Corpuscular Volume 89.6 FL (87-102); Mean Platelet Volume 11.2 FL (9.6-12.0); Monocytes % 8.8 % (1.7-12.7); Neutrophils % 65.1 % (38.7-73.9); Platelet Count 209 T/CUMM (130-400); Red Cell Distribution Width 16.2 % (9.3-17.3); White Blood Count 7.8 T/CUMM (4-12)
[2021-01-16 05:31] LABS: Calcium 9.1 MG/DL (8.5-10.1); Osmolality,Calculated 263.7 MOS/KG (273-304); Potassium 5.1 MMOL/L (3.5-5.1); Risk Ratio 6.52; VLDL CHOLESTEROL 13.8 MG/DL
[2021-01-16 05:40] LABS: Eosinophils 2 % (0-10); Lymphocytes 20 % (20-55); Platelet Estimate Normal; Segmented Neutrophils 70 % (50-85); Total Cells Counted 100
[2021-01-16] MEDS ORDERED: FUROSEMIDE 40 MG/4 ML VIAL IV SCH (06:00)
[2021-01-16] MEDS: INSULIN LISPRO 100 UNIT/ML SUBCUT SCH ×4 (08:58→20:51)
[2021-01-16] MEDS: FUROSEMIDE 40 MG/4 ML VIAL IV SCH ×2 (08:59→15:47)
[2021-01-16] MEDS: carvediloL 6.25 MG TABLET PO SCH ×2 (09:00→20:51)
[2021-01-16] MEDS: ASPIRIN CHEW 81 MG TABLET PO SCH (09:00)
[2021-01-16] MEDS: ENOXAPARIN 40 MG/0.4 ML SYRINGE SUBCUT SCH ×2 (09:00→09:59)
[2021-01-16] MEDS: PANTOPRAZOLE 40 MG TABLET PO SCH (09:00)
[2021-01-16] MEDS: ONDANSETRON 4 MG/2 ML VIAL IV PRN (09:06)
[2021-01-16] MEDS ORDERED: LORazepam 0.5 MG TABLET PO ONE (11:03)
[2021-01-16] MEDS ORDERED: LORazepam 1 MG TABLET PO ONE (11:30)
[2021-01-16] MEDS: LORazepam 2 MG/1 ML VIAL IV PRN (20:51)
[2021-01-16] MEDS: POTASSIUM CHLORIDE 20 MEQ TABLET PO SCH (20:51)
[2021-01-17] MEDS: LORazepam 2 MG/1 ML VIAL IV PRN ×2 (03:00→09:39)
[2021-01-17 04:15] LABS: Basophils # 0.1 10*3/uL (0.0-0.2); Basophils % 1.3 % (0.0-0.8); Eosinophils # 0.2 10*3/uL (0.0-0.87); Hematocrit 43.2 VOL% (42.0-52.0); Immature Granulocytes % 0.4 %; Immature Granulocytes Absolute 0.04 #; Lymphocytes # 2.1 10*3/uL (1.4-4.0); Lymphocytes % 22.8 % (21.2-54.2); Mean Corpuscular HGB Conc 32.4 GM/DL (32-36); Mean Corpuscular Volume 90.6 FL (87-102); Mean Platelet Volume 11.5 FL (9.6-12.0); Monocytes % 10.9 % (1.7-12.7); Neutrophils % 62.6 % (38.7-73.9); Platelet Count 214 T/CUMM (130-400); Red Blood Count 4.77 MC/CUMM (3.8-5.5); Red Cell Distribution Width 15.9 % (9.3-17.3)
[2021-01-17 04:41] LABS: Calcium 8.5 MG/DL (8.5-10.1); Osmolality,Calculated 258.1 MOS/KG (273-304); Potassium 4.3 MMOL/L (3.5-5.1)
[2021-01-17 06:59] LABS: Eosinophils 1 % (0-10); Lymphocytes 23 % (20-55); Segmented Neutrophils 69 % (50-85); Total Cells Counted 100
[2021-01-17 07:00] LABS: Platelet Estimate Normal
[2021-01-17 07:01] LABS: Microcytosis Slight; Ovalocytes Few
[2021-01-17] MEDS ORDERED: FUROSEMIDE 40 MG TABLET PO SCH (09:00)
[2021-01-17] MEDS ORDERED: lisinopriL 2.5 MG TABLET PO SCH (09:00)
[2021-01-17] MEDS ORDERED: SPIRONOLACTONE 25 MG TABLET PO SCH (09:00)
[2021-01-17] MEDS: ASPIRIN CHEW 81 MG TABLET PO SCH (09:37)
[2021-01-17] MEDS: POTASSIUM CHLORIDE 20 MEQ TABLET PO SCH (09:37)
[2021-01-17] MEDS: PANTOPRAZOLE 40 MG TABLET PO SCH (09:37)
[2021-01-17] MEDS: carvediloL 6.25 MG TABLET PO SCH (09:37)
[2021-01-17] MEDS: INSULIN LISPRO 100 UNIT/ML SUBCUT SCH ×2 (10:40→12:05)
[2021-01-17] MEDS: ENOXAPARIN 40 MG/0.4 ML SYRINGE SUBCUT SCH (12:05)
[2021-01-17 12:10] VITALS: BP 112/85
== END 2021-01-17 15:28 | disposition home or self-care (01) ==
LOC: EDUNIT# → EDBD → N.ED 05:36 → INTOOBSV 10:21 → N.EDINP 10:21 → N.TELEN 12:14
PROVIDERS: ADMIT Internal Medicine; ATTEND Internal Medicine

== ENCOUNTER 2021-03-06 07:09 | Inpatient (IN) ==
[2021-03-06 07:33] LABS: Basophils # 0.1 10*3/uL (0.0-0.2); Basophils % 0.9 % (0.0-0.8); Eosinophils # 0.2 10*3/uL (0.0-0.87); Eosinophils % 2.5 % (0.00-10.9); Hematocrit 41.4 VOL% (42.0-52.0); Hemoglobin 13.5 GM/DL (14.0-18.0); Immature Granulocytes % 0.4 %; Immature Granulocytes Absolute 0.04 #; Lymphocytes # 1.5 10*3/uL (1.4-4.0); Lymphocytes % 16.3 % (21.2-54.2); Mean Corpuscular HGB Conc 32.6 GM/DL (32-36); Mean Corpuscular Volume 89.6 FL (87-102); Monocytes % 8.1 % (1.7-12.7); Neutrophils % 71.8 % (38.7-73.9); Platelet Count 277 T/CUMM (130-400); Red Blood Count 4.62 MC/CUMM (3.8-5.5); Red Cell Distribution Width 16.3 % (9.3-17.3); White Blood Count 9.1 T/CUMM (4-12)
[2021-03-06] MEDS ORDERED: FUROSEMIDE 40 MG/4 ML VIAL IV STA (07:39)
[2021-03-06 07:52] LABS: Albumin 3.2 G/DL (3.4-5.0); Band Neutrophils 2 % (0-10); Bilirubin,Total 1.8 MG/DL (0.20-1.00); Calcium 8.5 MG/DL (8.5-10.1); Lymphocytes 17 % (20-55); Osmolality,Calculated 268.1 MOS/KG (273-304); Platelet Estimate Normal; Potassium 3.8 MMOL/L (3.5-5.1); Segmented Neutrophils 69 % (50-85); Total Cells Counted 100; Total Protein 6.3 G/DL (6.4-8.2)
[2021-03-06 07:53] LABS: Anisocytosis 1+
[2021-03-06 09:37] LABS: Barbiturates Screen,Urine Negative (Negative); Benzodiazepines Screen,Urine Negative (Negative); Cannabinoid Screen,Urine Negative (Negative); Opiate Screen,Urine Negative (Negative); Phencyclidine Screen,Urine Negative (Negative)
[2021-03-06] MEDS ORDERED: DEXTROSE 50% 25 GM/50 ML VIAL IV PRN (12:40)
[2021-03-06] MEDS ORDERED: GLUCAGON 1 MG VIAL IM PRN (12:40)
[2021-03-06] MEDS ORDERED: BISACODYL 5 MG TABLET PO PRN (12:40)
[2021-03-06] MEDS ORDERED: NICOTINE 21 MG/24 HR PATCH TRANSDERM PRN (12:40)
[2021-03-06] MEDS: PANTOPRAZOLE 40 MG TABLET PO SCH (13:45)
[2021-03-06] MEDS: ASPIRIN CHEW 81 MG TABLET PO SCH (13:46)
[2021-03-06] MEDS: GABAPENTIN 300 MG CAPSULE PO SCH ×2 (15:49→20:28)
[2021-03-06] MEDS: INSULIN LISPRO 100 UNIT/ML SUBCUT SCH ×2 (16:59→20:29)
[2021-03-07 05:47] LABS: Basophils # 0.1 10*3/uL (0.0-0.2); Basophils % 0.9 % (0.0-0.8); Eosinophils # 0.3 10*3/uL (0.0-0.87); Eosinophils % 2.8 % (0.00-10.9); Hematocrit 42.7 VOL% (42.0-52.0); Hemoglobin 14.1 GM/DL (14.0-18.0); Immature Granulocytes % 0.4 %; Immature Granulocytes Absolute 0.04 #; Lymphocytes # 1.6 10*3/uL (1.4-4.0); Lymphocytes % 17.5 % (21.2-54.2); Mean Corpuscular Volume 89.5 FL (87-102); Mean Platelet Volume 10.4 FL (9.6-12.0); Monocytes % 7.3 % (1.7-12.7); Neutrophils % 71.1 % (38.7-73.9); Platelet Count 253 T/CUMM (130-400); Red Blood Count 4.77 MC/CUMM (3.8-5.5); Red Cell Distribution Width 16.5 % (9.3-17.3); White Blood Count 9.1 T/CUMM (4-12)
[2021-03-07 06:49] LABS: Albumin 3.2 G/DL (3.4-5.0); Calcium 8.8 MG/DL (8.5-10.1); Osmolality,Calculated 270.2 MOS/KG (273-304); Potassium 3.2 MMOL/L (3.5-5.1); Total Protein 6.7 G/DL (6.4-8.2)
[2021-03-07] MEDS: INSULIN LISPRO 100 UNIT/ML SUBCUT SCH ×4 (07:52→20:40)
[2021-03-07] MEDS ORDERED: POTASSIUM CHLORIDE 20 MEQ TABLET PO ONE ×2 (08:12→15:10)
[2021-03-07] MEDS: lisinopriL 2.5 MG TABLET PO SCH (08:28)
[2021-03-07] MEDS: SPIRONOLACTONE 25 MG TABLET PO SCH (08:29)
[2021-03-07] MEDS: ASPIRIN CHEW 81 MG TABLET PO SCH (08:29)
[2021-03-07] MEDS: FUROSEMIDE 40 MG/4 ML VIAL IV SCH (08:29)
[2021-03-07] MEDS: GABAPENTIN 300 MG CAPSULE PO SCH ×3 (08:29→20:40)
[2021-03-07] MEDS: PANTOPRAZOLE 40 MG TABLET PO SCH (08:29)
[2021-03-07] MEDS: carvediloL 6.25 MG TABLET PO SCH ×2 (08:29→20:40)
[2021-03-07] MEDS ORDERED: ACETAMINOPHEN 325 MG TABLET PO PRN (18:54)
[2021-03-08 05:32] LABS: Basophils # 0.1 10*3/uL (0.0-0.2); Basophils % 1.2 % (0.0-0.8); Eosinophils # 0.2 10*3/uL (0.0-0.87); Eosinophils % 2.4 % (0.00-10.9); Hematocrit 42.2 VOL% (42.0-52.0); Hemoglobin 13.6 GM/DL (14.0-18.0); Immature Granulocytes % 0.6 %; Immature Granulocytes Absolute 0.05 #; Lymphocytes # 1.7 10*3/uL (1.4-4.0); Lymphocytes % 19.7 % (21.2-54.2); Mean Corpuscular HGB Conc 32.2 GM/DL (32-36); Mean Corpuscular Volume 89.8 FL (87-102); Mean Platelet Volume 10.9 FL (9.6-12.0); Monocytes % 8.2 % (1.7-12.7); Neutrophils % 67.9 % (38.7-73.9); Platelet Count 280 T/CUMM (130-400); Red Cell Distribution Width 16.4 % (9.3-17.3); White Blood Count 8.7 T/CUMM (4-12)
[2021-03-08 05:38] LABS: ABG Base Excess 0.3 MMOL/L (-2.5-2.5); ABG HCO3 21.6 MMOL/L (20-26); ABG Oxygen Saturation 98.6 % (95-100); ABG PCO2 26.6 MM HG (35-48); ABG PH 7.527 (7.35-7.45); ABG PO2 115.7 MM HG (80-95); ABG TCO2 22.4 MMOL/L (23-27)
[2021-03-08 05:46] LABS: Calcium 8.5 MG/DL (8.5-10.1); Osmolality,Calculated 264.5 MOS/KG (273-304); Potassium 4.2 MMOL/L (3.5-5.1)
[2021-03-08 05:54] LABS: Hypochromasia 1+; Microcytosis 1+; Ovalocytes Slight; Platelet Estimate Normal
[2021-03-08] MEDS: INSULIN LISPRO 100 UNIT/ML SUBCUT SCH ×4 (07:41→20:46)
[2021-03-08] MEDS: GABAPENTIN 300 MG CAPSULE PO SCH ×3 (09:10→20:46)
[2021-03-08] MEDS: lisinopriL 2.5 MG TABLET PO SCH (09:10)
[2021-03-08] MEDS: ASPIRIN CHEW 81 MG TABLET PO SCH (09:10)
[2021-03-08] MEDS: PANTOPRAZOLE 40 MG TABLET PO SCH (09:11)
[2021-03-08] MEDS: FUROSEMIDE 40 MG/4 ML VIAL IV SCH ×2 (09:11→15:18)
[2021-03-08] MEDS: carvediloL 6.25 MG TABLET PO SCH ×2 (09:11→20:46)
[2021-03-08] MEDS: SPIRONOLACTONE 25 MG TABLET PO SCH (09:11)
[2021-03-08] MEDS ORDERED: MAGNESIUM SULF RIDER 2 GM/50 ML PREMIX IV ONE (11:41)
[2021-03-08] MEDS: ALBUTEROL/IPRATROPIUM 3 ML NEB RESP TX PRN (15:20)
[2021-03-09] MEDS: INSULIN LISPRO 100 UNIT/ML SUBCUT SCH ×4 (08:20→21:41)
[2021-03-09] MEDS: ASPIRIN CHEW 81 MG TABLET PO SCH (09:14)
[2021-03-09] MEDS: busPIRone 5 MG TABLET PO SCH ×2 (09:15→21:41)
[2021-03-09] MEDS: SPIRONOLACTONE 25 MG TABLET PO SCH (09:15)
[2021-03-09] MEDS: lisinopriL 2.5 MG TABLET PO SCH (09:15)
[2021-03-09] MEDS: PANTOPRAZOLE 40 MG TABLET PO SCH (09:15)
[2021-03-09] MEDS: APIXABAN 5 MG TABLET PO SCH ×2 (09:15→21:41)
[2021-03-09] MEDS: carvediloL 6.25 MG TABLET PO SCH ×2 (09:16→21:41)
[2021-03-09] MEDS: GABAPENTIN 300 MG CAPSULE PO SCH ×3 (09:16→21:41)
[2021-03-09] MEDS: FUROSEMIDE 40 MG/4 ML VIAL IV SCH ×2 (09:16→16:23)
[2021-03-09 10:22] LABS: Basophils # 0.1 10*3/uL (0.0-0.2); Basophils % 1.1 % (0.0-0.8); Eosinophils # 0.2 10*3/uL (0.0-0.87); Eosinophils % 2.2 % (0.00-10.9); Hemoglobin 13.6 GM/DL (14.0-18.0); Immature Granulocytes % 0.2 %; Immature Granulocytes Absolute 0.02 #; Lymphocytes # 1.6 10*3/uL (1.4-4.0); Lymphocytes % 17.4 % (21.2-54.2); Mean Corpuscular HGB Conc 32.4 GM/DL (32-36); Mean Corpuscular Volume 90.5 FL (87-102); Mean Platelet Volume 9.9 FL (9.6-12.0); Monocytes % 8.8 % (1.7-12.7); Neutrophils % 70.3 % (38.7-73.9); Platelet Count 244 T/CUMM (130-400); Red Blood Count 4.64 MC/CUMM (3.8-5.5); Red Cell Distribution Width 16.2 % (9.3-17.3); White Blood Count 9.2 T/CUMM (4-12)
[2021-03-09] MEDS: lisinopriL 5 MG TABLET PO SCH (10:36)
[2021-03-09 10:52] LABS: Calcium 8.7 MG/DL (8.5-10.1); Osmolality,Calculated 256.1 MOS/KG (273-304); Potassium 3.8 MMOL/L (3.5-5.1)
[2021-03-09 11:05] LABS: Atypical Lymphocytes Few; Eosinophils 1 % (0-10); Hypochromasia 1+; Lymphocytes 18 % (20-55); Segmented Neutrophils 72 % (50-85); Total Cells Counted 100
[2021-03-09 11:06] LABS: Microcytosis 1+; Ovalocytes Slight; Platelet Estimate Normal
[2021-03-09] MEDS: ALBUTEROL/IPRATROPIUM 3 ML NEB RESP TX PRN (11:42)
[2021-03-10 05:50] LABS: Basophils # 0.1 10*3/uL (0.0-0.2); Basophils % 1.2 % (0.0-0.8); Eosinophils # 0.2 10*3/uL (0.0-0.87); Eosinophils % 1.9 % (0.00-10.9); Hematocrit 39.6 VOL% (42.0-52.0); Hemoglobin 13.3 GM/DL (14.0-18.0); Immature Granulocytes % 0.6 %; Immature Granulocytes Absolute 0.05 #; Lymphocytes # 1.6 10*3/uL (1.4-4.0); Lymphocytes % 18.4 % (21.2-54.2); Mean Corpuscular HGB Conc 33.6 GM/DL (32-36); Mean Corpuscular Volume 87.2 FL (87-102); Mean Platelet Volume 10.5 FL (9.6-12.0); Monocytes % 9.4 % (1.7-12.7); Neutrophils % 68.5 % (38.7-73.9); Platelet Count 233 T/CUMM (130-400); Red Blood Count 4.54 MC/CUMM (3.8-5.5); Red Cell Distribution Width 15.9 % (9.3-17.3); White Blood Count 8.6 T/CUMM (4-12)
[2021-03-10 06:05] LABS: Calcium 8.3 MG/DL (8.5-10.1); Osmolality,Calculated 260.9 MOS/KG (273-304); Potassium 3.9 MMOL/L (3.5-5.1)
[2021-03-10 06:14] LABS: Hypochromasia Slight; Microcytosis Slight; Platelet Estimate Adequate
[2021-03-10] MEDS: INSULIN LISPRO 100 UNIT/ML SUBCUT SCH ×4 (08:01→20:01)
[2021-03-10] MEDS: GABAPENTIN 300 MG CAPSULE PO SCH ×3 (09:10→20:25)
[2021-03-10] MEDS: FUROSEMIDE 40 MG/4 ML VIAL IV SCH ×2 (09:10→16:23)
[2021-03-10] MEDS: APIXABAN 5 MG TABLET PO SCH ×2 (09:11→20:25)
[2021-03-10] MEDS: SPIRONOLACTONE 25 MG TABLET PO SCH (09:11)
[2021-03-10] MEDS: busPIRone 5 MG TABLET PO SCH ×2 (09:11→20:27)
[2021-03-10] MEDS: carvediloL 6.25 MG TABLET PO SCH ×2 (09:11→20:25)
[2021-03-10] MEDS: ASPIRIN CHEW 81 MG TABLET PO SCH (09:11)
[2021-03-10] MEDS: PANTOPRAZOLE 40 MG TABLET PO SCH (09:12)
[2021-03-10] MEDS: lisinopriL 5 MG TABLET PO SCH (09:13)
[2021-03-10] MEDS ORDERED: SIMETHICONE CHEW 125 MG TABLET PO ONE (09:30)
[2021-03-10] MEDS: ONDANSETRON 4 MG/2 ML VIAL IV PRN (09:52)
[2021-03-10] MEDS ORDERED: ALUM/MAG/SIMETH/LIDO VISC 1:1 30 ML BOTTLE PO ONE (09:59)
[2021-03-10 13:09] LABS: Albumin 3.5 G/DL (3.4-5.0); Bilirubin,Direct 0.7 MG/DL (0.0-0.20); Bilirubin,Indirect 0.6 MG/DL (0.0-1.0); Bilirubin,Total 1.3 MG/DL (0.20-1.00); Total Protein 7.2 G/DL (6.4-8.2)
[2021-03-10] MEDS ORDERED: KETOROLAC 30 MG/1 ML VIAL IV ONE (13:31)
[2021-03-11] MEDS: SIMETHICONE CHEW 125 MG TABLET PO PRN ×4 (02:02→13:25)
[2021-03-11 06:27] LABS: Basophils # 0.1 10*3/uL (0.0-0.2); Eosinophils # 0.2 10*3/uL (0.0-0.87); Eosinophils % 2.1 % (0.00-10.9); Hematocrit 40.8 VOL% (42.0-52.0); Hemoglobin 13.4 GM/DL (14.0-18.0); Immature Granulocytes % 0.3 %; Immature Granulocytes Absolute 0.03 #; Lymphocytes # 1.7 10*3/uL (1.4-4.0); Lymphocytes % 18.5 % (21.2-54.2); Mean Corpuscular HGB Conc 32.8 GM/DL (32-36); Mean Corpuscular Volume 89.9 FL (87-102); Mean Platelet Volume 10.6 FL (9.6-12.0); Monocytes % 10.2 % (1.7-12.7); Neutrophils % 67.9 % (38.7-73.9); Platelet Count 228 T/CUMM (130-400); Red Blood Count 4.54 MC/CUMM (3.8-5.5); Red Cell Distribution Width 15.9 % (9.3-17.3); White Blood Count 9.4 T/CUMM (4-12)
[2021-03-11 06:50] LABS: Calcium 8.8 MG/DL (8.5-10.1); Osmolality,Calculated 249.9 MOS/KG (273-304)
[2021-03-11 06:54] LABS: Band Neutrophils 1 % (0-10); Eosinophils 2 % (0-10); Lymphocytes 15 % (20-55); Platelet Estimate Normal; Segmented Neutrophils 78 % (50-85); Total Cells Counted 100
[2021-03-11] MEDS: INSULIN LISPRO 100 UNIT/ML SUBCUT SCH ×4 (09:42→21:01)
[2021-03-11] MEDS: GABAPENTIN 300 MG CAPSULE PO SCH ×3 (09:43→21:00)
[2021-03-11] MEDS: carvediloL 6.25 MG TABLET PO SCH ×2 (09:43→21:00)
[2021-03-11] MEDS: SPIRONOLACTONE 25 MG TABLET PO SCH (09:43)
[2021-03-11] MEDS: ASPIRIN CHEW 81 MG TABLET PO SCH (09:43)
[2021-03-11] MEDS: APIXABAN 5 MG TABLET PO SCH ×2 (09:44→21:00)
[2021-03-11] MEDS: PANTOPRAZOLE 40 MG TABLET PO SCH (09:44)
[2021-03-11] MEDS: lisinopriL 5 MG TABLET PO SCH (09:44)
[2021-03-11] MEDS: busPIRone 5 MG TABLET PO SCH ×2 (09:50→21:00)
[2021-03-11] MEDS: FUROSEMIDE 40 MG/4 ML VIAL IV SCH ×2 (09:50→16:21)
[2021-03-11] MEDS ORDERED: KETOROLAC 30 MG/1 ML VIAL IV ONE (10:23)
[2021-03-11] MEDS: DICYCLOMINE 20 MG TABLET PO SCH ×3 (13:25→20:59)
[2021-03-11] MEDS ORDERED: MORPHINE 2 MG/1 ML SYRINGE IV ONE (14:16)
[2021-03-11] MEDS ORDERED: FUROSEMIDE 40 MG TABLET PO SCH (21:00)
[2021-03-11] MEDS: ONDANSETRON 4 MG/2 ML VIAL IV PRN (21:01)
[2021-03-12 06:44] LABS: Basophils # 0.1 10*3/uL (0.0-0.2); Basophils % 0.9 % (0.0-0.8); Eosinophils # 0.1 10*3/uL (0.0-0.87); Eosinophils % 1.6 % (0.00-10.9); Hematocrit 38.6 VOL% (42.0-52.0); Hemoglobin 13.2 GM/DL (14.0-18.0); Immature Granulocytes % 0.4 %; Immature Granulocytes Absolute 0.03 #; Lymphocytes # 1.4 10*3/uL (1.4-4.0); Lymphocytes % 17.8 % (21.2-54.2); Mean Corpuscular HGB Conc 34.2 GM/DL (32-36); Mean Corpuscular Volume 86.5 FL (87-102); Mean Platelet Volume 11.8 FL (9.6-12.0); Monocytes % 9.9 % (1.7-12.7); Neutrophils % 69.4 % (38.7-73.9); Platelet Count 212 T/CUMM (130-400); Red Blood Count 4.46 MC/CUMM (3.8-5.5); Red Cell Distribution Width 15.7 % (9.3-17.3)
[2021-03-12 07:06] LABS: Calcium 8.3 MG/DL (8.5-10.1); Osmolality,Calculated 249.8 MOS/KG (273-304); Potassium 4.4 MMOL/L (3.5-5.1)
[2021-03-12] MEDS: INSULIN LISPRO 100 UNIT/ML SUBCUT SCH ×4 (07:49→20:55)
[2021-03-12] MEDS: carvediloL 6.25 MG TABLET PO SCH ×2 (08:32→20:56)
[2021-03-12] MEDS: GABAPENTIN 300 MG CAPSULE PO SCH ×3 (08:32→20:56)
[2021-03-12] MEDS: ASPIRIN CHEW 81 MG TABLET PO SCH (08:32)
[2021-03-12] MEDS: APIXABAN 5 MG TABLET PO SCH ×2 (08:32→20:56)
[2021-03-12] MEDS: busPIRone 5 MG TABLET PO SCH ×2 (08:32→20:55)
[2021-03-12] MEDS: lisinopriL 5 MG TABLET PO SCH (08:33)
[2021-03-12] MEDS: DICYCLOMINE 20 MG TABLET PO SCH ×4 (08:33→20:57)
[2021-03-12] MEDS: SPIRONOLACTONE 25 MG TABLET PO SCH (08:33)
[2021-03-12] MEDS: PANTOPRAZOLE 40 MG TABLET PO SCH ×2 (08:33→20:56)
[2021-03-12] MEDS ORDERED: KETOROLAC 30 MG/1 ML VIAL IV ONE (11:01)
[2021-03-13 06:30] LABS: Basophils # 0.1 10*3/uL (0.0-0.2); Basophils % 0.8 % (0.0-0.8); Eosinophils # 0.1 10*3/uL (0.0-0.87); Eosinophils % 1.2 % (0.00-10.9); Hematocrit 38.2 VOL% (42.0-52.0); Hemoglobin 13.3 GM/DL (14.0-18.0); Immature Granulocytes % 0.6 %; Immature Granulocytes Absolute 0.05 #; Lymphocytes # 1.3 10*3/uL (1.4-4.0); Mean Corpuscular HGB Conc 34.8 GM/DL (32-36); Mean Platelet Volume 11.9 FL (9.6-12.0); Monocytes % 8.9 % (1.7-12.7); Neutrophils % 73.5 % (38.7-73.9); Platelet Count 203 T/CUMM (130-400); Red Blood Count 4.44 MC/CUMM (3.8-5.5); Red Cell Distribution Width 15.5 % (9.3-17.3); White Blood Count 8.7 T/CUMM (4-12)
[2021-03-13 06:50] LABS: Calcium 8.5 MG/DL (8.5-10.1); Osmolality,Calculated 249.1 MOS/KG (273-304); Potassium 4.6 MMOL/L (3.5-5.1)
[2021-03-13] MEDS: INSULIN LISPRO 100 UNIT/ML SUBCUT SCH ×4 (08:11→21:12)
[2021-03-13] MEDS: ASPIRIN CHEW 81 MG TABLET PO SCH (08:33)
[2021-03-13] MEDS: lisinopriL 5 MG TABLET PO SCH (08:33)
[2021-03-13] MEDS: busPIRone 5 MG TABLET PO SCH ×2 (08:33→21:12)
[2021-03-13] MEDS: GABAPENTIN 300 MG CAPSULE PO SCH ×3 (08:33→21:13)
[2021-03-13] MEDS: DICYCLOMINE 20 MG TABLET PO SCH ×4 (08:34→21:12)
[2021-03-13] MEDS: carvediloL 6.25 MG TABLET PO SCH ×2 (08:34→21:13)
[2021-03-13] MEDS: APIXABAN 5 MG TABLET PO SCH ×2 (08:34→21:13)
[2021-03-13] MEDS: SPIRONOLACTONE 25 MG TABLET PO SCH (08:34)
[2021-03-13] MEDS: PANTOPRAZOLE 40 MG TABLET PO SCH ×2 (08:34→21:13)
[2021-03-13] MEDS: KETOROLAC 15 MG/1 ML VIAL IV PRN ×2 (08:45→21:12)
[2021-03-13] MEDS ORDERED: SODIUM CHLORIDE 1 GM TABLET PO ONE (15:36)
[2021-03-14 05:09] LABS: Basophils # 0.1 10*3/uL (0.0-0.2); Basophils % 0.7 % (0.0-0.8); Eosinophils # 0.1 10*3/uL (0.0-0.87); Eosinophils % 0.8 % (0.00-10.9); Hemoglobin 13.7 GM/DL (14.0-18.0); Immature Granulocytes % 0.5 %; Immature Granulocytes Absolute 0.05 #; Lymphocytes # 1.3 10*3/uL (1.4-4.0); Lymphocytes % 12.4 % (21.2-54.2); Mean Corpuscular HGB Conc 34.3 GM/DL (32-36); Mean Corpuscular Volume 85.7 FL (87-102); Mean Platelet Volume 11.6 FL (9.6-12.0); Monocytes % 8.2 % (1.7-12.7); Neutrophils % 77.4 % (38.7-73.9); Platelet Count 229 T/CUMM (130-400); Red Blood Count 4.67 MC/CUMM (3.8-5.5); Red Cell Distribution Width 15.5 % (9.3-17.3); White Blood Count 10.1 T/CUMM (4-12)
[2021-03-14 05:30] LABS: Albumin 3.4 G/DL (3.4-5.0); Bilirubin,Total 2.8 MG/DL (0.20-1.00); Calcium 8.5 MG/DL (8.5-10.1); Osmolality,Calculated 250.2 MOS/KG (273-304); Total Protein 6.8 G/DL (6.4-8.2)
[2021-03-14 05:38] LABS: Potassium 6.1 MMOL/L (3.5-5.1)
[2021-03-14] MEDS ORDERED: INSULIN REGULAR 10 UNIT, CALCIUM GLUCONATE 1,000 MG in DEXTROSE 10% 250 ML IV ONE (05:45)
[2021-03-14] MEDS: INSULIN LISPRO 100 UNIT/ML SUBCUT SCH ×4 (08:16→21:39)
[2021-03-14] MEDS: carvediloL 6.25 MG TABLET PO SCH ×2 (09:54→21:45)
[2021-03-14] MEDS: APIXABAN 5 MG TABLET PO SCH ×2 (09:54→21:46)
[2021-03-14] MEDS: busPIRone 5 MG TABLET PO SCH ×2 (09:54→21:45)
[2021-03-14] MEDS: DICYCLOMINE 20 MG TABLET PO SCH ×4 (09:55→21:46)
[2021-03-14] MEDS: lisinopriL 5 MG TABLET PO SCH (09:55)
[2021-03-14] MEDS: SPIRONOLACTONE 25 MG TABLET PO SCH (09:55)
[2021-03-14] MEDS: GABAPENTIN 300 MG CAPSULE PO SCH ×3 (09:55→21:45)
[2021-03-14] MEDS: PANTOPRAZOLE 40 MG TABLET PO SCH ×2 (09:56→21:46)
[2021-03-14] MEDS: ASPIRIN CHEW 81 MG TABLET PO SCH (09:56)
[2021-03-14] MEDS ORDERED: SODIUM BICARBONATE 650 MG TABLET PO SCH (13:00)
[2021-03-14] MEDS ORDERED: SODIUM POLYSTYRENE SULFATE 15 GM/60 ML BOTTLE PO ONE (13:05)
[2021-03-14] MEDS: SODIUM CHLORIDE 1 GM TABLET PO SCH ×2 (14:18→21:45)
[2021-03-14 14:24] LABS: Calcium 8.5 MG/DL (8.5-10.1); Osmolality,Calculated 245.3 MOS/KG (273-304)
[2021-03-14] MEDS ORDERED: SODIUM CHLORIDE 0.9% 250 ML IV ONE (14:34)
[2021-03-14] MEDS ORDERED: SODIUM CHLORIDE 0.9% 250 ML IV SCH (15:00)
[2021-03-14] MEDS ORDERED: CLINDAMYCIN INJ 600 MG/50 ML PREMIX IV SCH (16:30)
[2021-03-14] MEDS ORDERED: TOLVAPTAN 15 MG TABLET PO ONE (16:35)
[2021-03-14 18:38] LABS: Calcium 8.3 MG/DL (8.5-10.1); Osmolality,Calculated 253.1 MOS/KG (273-304); Potassium 4.7 MMOL/L (3.5-5.1)
[2021-03-14] MEDS ORDERED: SODIUM POLYSTYRENE SULFATE 15 GM/60 ML BOTTLE PO SCH (21:00)
[2021-03-15] MEDS: KETOROLAC 15 MG/1 ML VIAL IV PRN ×3 (04:41→20:31)
[2021-03-15 06:02] LABS: Basophils % 0.3 % (0.0-0.8); Eosinophils % 0.2 % (0.00-10.9); Hemoglobin 12.4 GM/DL (14.0-18.0); Immature Granulocytes % 0.4 %; Immature Granulocytes Absolute 0.05 #; Lymphocytes % 7.7 % (21.2-54.2); Mean Corpuscular HGB Conc 34.4 GM/DL (32-36); Mean Corpuscular Volume 85.9 FL (87-102); Mean Platelet Volume 11.1 FL (9.6-12.0); Monocytes % 11.4 % (1.7-12.7); Platelet Count 217 T/CUMM (130-400); Red Blood Count 4.19 MC/CUMM (3.8-5.5); Red Cell Distribution Width 15.4 % (9.3-17.3); White Blood Count 13.3 T/CUMM (4-12)
[2021-03-15 06:41] LABS: Risk Ratio 4.56; Thyroid Stimulating Hormone 1.71 uIU/ml (0.358-3.74); Total Protein 6.3 G/DL (6.4-8.2); Uric Acid 7.3 MG/DL (3.5-7.2); VLDL Cholesterol 10.8 MG/DL
[2021-03-15 06:42] LABS: Albumin 3.2 G/DL (3.4-5.0); Bilirubin,Total 2.5 MG/DL (0.20-1.00); Calcium 8.6 MG/DL (8.5-10.1); Osmolality,Calculated 261.1 MOS/KG (273-304); Potassium 4.7 MMOL/L (3.5-5.1); Total Protein 6.3 G/DL (6.4-8.2)
[2021-03-15] MEDS: INSULIN LISPRO 100 UNIT/ML SUBCUT SCH ×4 (07:45→20:23)
[2021-03-15] MEDS: PANTOPRAZOLE 40 MG TABLET PO SCH ×2 (08:40→20:23)
[2021-03-15] MEDS: SODIUM CHLORIDE 1 GM TABLET PO SCH ×2 (08:40→20:22)
[2021-03-15] MEDS: carvediloL 6.25 MG TABLET PO SCH ×2 (08:41→20:22)
[2021-03-15] MEDS: DICYCLOMINE 20 MG TABLET PO SCH ×4 (08:41→20:22)
[2021-03-15] MEDS: amLODIPine 10 MG TABLET PO SCH (08:41)
[2021-03-15] MEDS: GABAPENTIN 300 MG CAPSULE PO SCH ×3 (08:41→20:22)
[2021-03-15] MEDS: busPIRone 5 MG TABLET PO SCH ×2 (08:41→20:22)
[2021-03-15] MEDS: ASPIRIN CHEW 81 MG TABLET PO SCH (08:42)
[2021-03-15] MEDS: APIXABAN 5 MG TABLET PO SCH ×2 (08:42→20:23)
[2021-03-15 08:45] LABS: Bilirubin,Urine Negative (Negative); Blood, Urine Negative (Negative); Glucose,Urine (UA) Negative (Negative); Ketones,Urine Negative (Negative); Mucus,Urine Occasional /LPF (Occasional); Nitrite,Urine Negative (Negative); Protein,Urine Negative; RBC,Urine <1 /HPF (0-4); Urine Appearance CLEAR (Clear); Urine Color Yellow (Yellow); Urine Specific Gravity 1.006 (1.001-1.035)
[2021-03-16] MEDS: KETOROLAC 15 MG/1 ML VIAL IV PRN (04:30)
[2021-03-16 07:28] LABS: Basophils # 0.1 10*3/uL (0.0-0.2); Basophils % 0.6 % (0.0-0.8); Eosinophils # 0.2 10*3/uL (0.0-0.87); Eosinophils % 1.5 % (0.00-10.9); Hemoglobin 12.9 GM/DL (14.0-18.0); Immature Granulocytes % 0.4 %; Immature Granulocytes Absolute 0.05 #; Lymphocytes # 1.3 10*3/uL (1.4-4.0); Lymphocytes % 10.9 % (21.2-54.2); Mean Corpuscular HGB Conc 33.9 GM/DL (32-36); Mean Corpuscular Volume 87.4 FL (87-102); Mean Platelet Volume 10.6 FL (9.6-12.0); Monocytes % 11.1 % (1.7-12.7); Neutrophils % 75.5 % (38.7-73.9); Platelet Count 198 T/CUMM (130-400); Red Blood Count 4.35 MC/CUMM (3.8-5.5); White Blood Count 11.7 T/CUMM (4-12)
[2021-03-16 07:58] LABS: Calcium 8.5 MG/DL (8.5-10.1); Osmolality,Calculated 262.8 MOS/KG (273-304); Potassium 4.7 MMOL/L (3.5-5.1)
[2021-03-16] MEDS: INSULIN LISPRO 100 UNIT/ML SUBCUT SCH ×2 (08:14→12:30)
[2021-03-16] MEDS: busPIRone 5 MG TABLET PO SCH (09:29)
[2021-03-16] MEDS: DICYCLOMINE 20 MG TABLET PO SCH ×2 (09:29→12:01)
[2021-03-16] MEDS: PANTOPRAZOLE 40 MG TABLET PO SCH (09:29)
[2021-03-16] MEDS: APIXABAN 5 MG TABLET PO SCH (09:29)
[2021-03-16] MEDS: ASPIRIN CHEW 81 MG TABLET PO SCH (09:30)
[2021-03-16] MEDS: GABAPENTIN 300 MG CAPSULE PO SCH (09:30)
[2021-03-16] MEDS: carvediloL 6.25 MG TABLET PO SCH (09:30)
[2021-03-16] MEDS: amLODIPine 10 MG TABLET PO SCH (09:30)
[2021-03-16] MEDS: SODIUM CHLORIDE 1 GM TABLET PO SCH (09:30)
[2021-03-16] MEDS ORDERED: FUROSEMIDE 20 MG TABLET PO ONE (10:24)
[2021-03-16 12:08] VITALS: BP 101/72
[2021-03-17 08:01] LABS: Total Protein (Chem) 6.3 G/DL (6.4-8.3)
[2021-03-17 10:31] LABS: Albumin (SPE) Rel % 64.1 %; Alpha 1 (SPE) 0.2 G/DL (0.1-0.4); Alpha 1 (SPE) Rel % 3.2 %; Alpha 2 (SPE) 0.6 G/DL (0.4-1.0); Alpha 2 (SPE) Rel % 9.5 %; Beta (SPE) 0.8 G/DL (0.5-1.1); Beta (SPE) Rel % 12.1 %; Gamma (SPE) 0.7 G/DL (0.7-1.7); Gamma (SPE) Rel % 11.1 %
== END 2021-03-16 14:05 | disposition home or self-care (01) | DRG 292 ==
LOC: SUATTDRO → EDUNIT# → EDBD → N.ED 07:09 → N.TELES 07:09 → SUATTDRO 18:12 → N.TELES 19:40 → SUATTDRO 03-09 09:53
PROVIDERS: ADMIT Nurse Practitioner Family; ATTEND Phlebology